=== PATIENT | male | born 1995 | race Caucasian/White ===

== ENCOUNTER 2020-05-31 15:56 | Emergency (ER) | payer MEDICAID ==
[~2020-05-31] VITALS: Ht 182.9 cm; Wt 77.1 kg
[2020-05-31 16:09] VITALS: BP 126/52
== END 2020-05-31 16:09 | disposition home or self-care (01) ==
LOC: M.ERS 15:56
DX: F41.0 Panic disorder [episodic paroxysmal anxiety] (principal); F11.90 Opioid use, unspecified, uncomplicated; F12.90 Cannabis use, unspecified, uncomplicated